=== PATIENT | female | born 1955 | race Two or more races ===

== ENCOUNTER 2018-07-05 09:02 | Outpatient (CLI) | payer OTHER | END 2018-07-05 09:16 | disposition home or self-care (01) | LOC: LAB 09:02 | DX: D68.8 Other specified coagulation defects (principal); D64.89 Other specified anemias; E03.8 Other specified hypothyroidism; R07.89 Other chest pain ==

== ENCOUNTER 2018-07-13 12:00 | Inpatient (IN) | payer OTHER ==
[~2018-07-13] VITALS: Ht 157.5 cm; Wt 97.5 kg
[2018-07-19] MEDS ORDERED: GABAPENTIN800 MG PO (19:55)
[2018-07-19] MEDS ORDERED: DOCUSATE SODIU100 MG PO (19:55)
[2018-07-19] MEDS ORDERED: AMOX-CLAV 875-1 EACH PO (19:57)
[2018-07-19] MEDS ORDERED: PERCOCET 5-3251 EACH PO (19:57)
[2018-07-19] MEDS ORDERED: CLONAZEPAM1 MG PO (19:57)
== END 2018-07-20 16:36 | disposition home or self-care (01) | DRG 455 ==
LOC: EDUNIT# 12:00 → SURG 07-19 04:35 → O/R 07-19 04:35 → SURH 07-19 12:00 → SURG 07-19 20:54
PROVIDERS: ADMIT Orthopaedic Surgery Orthopaedic Surgery of the Spine
PROC: 0SG0071 Fusion of Lumbar Vertebral Joint with Autologous Tissue Substitute, Posterior Approach, Posterior Column, Open Approach (ICD-10-PCS; 2018-07-19)
PROC: 0ST20ZZ Resection of Lumbar Vertebral Disc, Open Approach (ICD-10-PCS; 2018-07-19)
PROC: 0SG00AJ Fusion of Lumbar Vertebral Joint with Interbody Fusion Device, Posterior Approach, Anterior Column, Open Approach (ICD-10-PCS; 2018-07-19)
PROC: 07DS3ZZ Extraction of Vertebral Bone Marrow, Percutaneous Approach (ICD-10-PCS; 2018-07-19)
PROC: 0SG00A0 Fusion of Lumbar Vertebral Joint with Interbody Fusion Device, Anterior Approach, Anterior Column, Open Approach (ICD-10-PCS; principal; 2018-07-19 15:15)
DX: M43.16 Spondylolisthesis, lumbar region (principal); M48.062 Spinal stenosis, lumbar region with neurogenic claudication; M51.16 Intervertebral disc disorders with radiculopathy, lumbar region